=== PATIENT | female | born 1990 | race Caucasian/White ===

== ENCOUNTER 2018-04-02 22:33 | Emergency (ER) | payer SELFPAY ==
[~2018-04-02] VITALS: Ht 157.5 cm; Wt 93.4 kg
[~2018-04-02 22:33] MED LIST: ACHD5005 PO; AMOX250S5 PO; ANTI15DR4 EACH EAR; CETI-176 PO; CYCL10TA9 PO; CYCL5TAB11 PO; FERR27TA PO; FRS325T; HYDR118S PO; HYDR1TAB PO; TRM50T PO
--- OUTSIDE RECORDS SUMMARY | 2018-04-02 22:37 | XMS REPORT ---
Author Author BARON GUPTA [facility] eClinicalWorks Address Unknown Phone Unavailable Care Team Providers Care Paving Foreman Name Role Phone BARON GUPTA CP Unavailable Allergies, Adverse Reactions, Alerts Substance Reaction Event Type outer casing of gel caps hives/swelling Non Drug Allergy Problems Problem Type Condition Code Onset Dates Condition Status Assessment Electrocution and nonfatal effects of electric current, sequela T75.4XXS Active Problem Headache 784.0 Active Medications Medication Code System Code Instructions Start Date End Date Status Dosage Loratadine NDC [address]-40 10 mg January 14, 2014 take 1 tablet by Oral route 1 time per day take at hs Multivit-Iron NDC 0 orally daily 1 tab Procedures Procedure Coding System Code Date Office Visit, Est Pt., Level 2 CPT-4 35901 Aug 26, 2016 Vital Signs Date/Time: Aug 26, 2016 Cardiac Monitoring Heart Rate 78 bpm Weight 202 lbs Height 62 in BMI 36.94 Index Blood Pressure Diastolic 72 mmHg Blood Pressure Systolic 130 mmHg Results No Known Results Summary Purpose eClinicalWorks Submission
--- OUTSIDE RECORDS SUMMARY | 2018-04-02 22:37 | XMS REPORT ---
Author Author DIONNA DELGADO eClinicalWorks Address Unknown Phone Unavailable Care Team Providers Care Laborer Cheesemaking Name Role Phone DIONNA DELGADO CP Unavailable Allergies, Adverse Reactions, Alerts Substance Reaction Event Type outer casing of gel caps hives/swelling Non Drug Allergy Problems Problem Type Condition Code Onset Dates Condition Status Assessment Dental examination Z01.20 Active Problem Headache 784.0 Active Medications Medication Code System Code Instructions Start Date End Date Status Dosage Multivit-Iron NDC 0 orally daily 1 tab Loratadine NDC [address]-14 10 mg January 14, 2014 take 1 tablet by Oral route 1 time per day take at hs Procedures Procedure Coding System Code Date INTRAORL-PERIAPICAL 1 FILM 75992 CPT-4 D0220 Aug 31, 2016 INTRAORL-PERIAPICAL EA ADD FILM CPT-4 D0230 Aug 31, 2016 LTD ORAL EVALUATION - PROBLEM FOCUS CPT-4 D0140 Aug 31, 2016 INTRAORL-PERIAPICAL EA ADD FILM CPT-4 D0230 Aug 31, 2016 Vital Signs Date/Time: Aug 31, 2016 Blood Pressure Diastolic 85 mmHg Blood Pressure Systolic 123 mmHg Results No Known Results Summary Purpose eClinicalWorks Submission
--- OUTSIDE RECORDS SUMMARY | 2018-04-02 22:37 | XMS REPORT ---
Author Author DIONNA DELGADO [facility] Address Unknown Care Team Providers Care Field Marketing Coordinator Name Role Phone DANNY DIONNA Unavailable PROBLEMS Type Condition ICD9-CM Code [id number] Code Onset Dates Condition Status SNOMED Code Problem Headache 784.0 Active 57994186 Assessment Dental examination Z01.20 Sep, Active [id number] ALLERGIES Substance Reaction Event Type Date Status outer casing of gel caps hives/swelling Non Drug Allergy Sep, Active SOCIAL HISTORY No smoking Hx information available PLAN OF CARE VITAL SIGNS MEDICATIONS Medication Instructions Dosage Frequency Start Date End Date Duration Status Multivit-Iron orally daily 1 tab 24h Active Loratadine 10 mg take 1 tablet by Oral route 1 time per day take at hs 10 Jan, 2014 Active RESULTS No Results PROCEDURES Procedure Date Ordered Related Diagnosis Body Site LTD ORAL EVALUATION - PROBLEM FOCUS Sep 15, 2016 INTRAORL-PERIAPICAL 1 FILM 80415 Sep 15, 2016 IMMUNIZATIONS No Known Immunizations
--- OUTSIDE RECORDS SUMMARY | 2018-04-02 22:37 | XMS REPORT ---
Author Author HOLLI PLATT [facility] eClinicalWorks Address Unknown Phone Unavailable Care Team Providers Care Thread Checker Name Role Phone HOLLI PLATT CP Unavailable Allergies No Known Allergies Problems Problem Type Condition ICD-9 Code Onset Dates Condition Status Assessment Dental examination V72.2 Active Problem Headache 784.0 Active Medications No Known Medications Procedures Procedure Coding System Code Date AMALGAM-ONE SURFACE PRIMARY/PERM CPT-4 D2140 Jul 15, 2015 AMALGAM-ONE SURFACE PRIMARY/PERM CPT-4 D2140 Jul 15, 2015 Results No Known Results Summary Purpose eClinicalWorks Submission
[2018-04-02] MEDS ORDERED: LACTATED RINGERS 1,000 ML IV ONE ×2 (22:39→23:47)
[2018-04-02] MEDS ORDERED: ONDANSETRON 4 MG/2 ML (SDV) Z0FRAN IVP ONE (22:45)
[2018-04-02] MEDS ORDERED: diphenhydrAMINE 50 MG/ML INJ (BENADRYL) IVP ONE (22:45)
--- NOTE | 2018-04-02 22:46 | ED GI ---
General Chief Complaint: Abdominal/GI Problems Stated Complaint: N/V/D HANDS TINGLING Source of Information: Patient History of Present Illness Date Seen by Provider: April 02, 2018 Time Seen by Provider: 22:36 Initial Comments PT ARRIVES VIA [facility] FROM HOME STATES 20 MINUTES AGO, WHILE DOING LAUNDRY, SHE BEGAN HAVING NAUSEA, VOMITING, DIARRHEA AND GOT REAL SHAKEY AND TINGLING ALL OVER VOMITED "4 TIMES ALL AT ONCE" AND HAD DIARRHEA "3 TIMES ALL AT ONCE" NO FEVER HAS BEEN SWIMMING IN [place]IP [place] TODAY OCCASIONALLY DRINKS ALCOHOL, DRANK YESTERDAY BUT NOT TODAY LMP 2 DAYS AGO, NORMAL. NO CONTROL NO KNOWN SICK CONTACTS OR SUSPICIOUS FOODS Allergies and Home Medications Allergies Uncoded Allergies: OUTER CASE OF ADVIL LIQUID (Allergy, Unknown, 04/03/18) Home Medications Cyclobenzaprine HCl 10 Mg Tablet, 10 MG PO Q8H PRN for SPASMS Prescribed by: BENJAMIN DEWITT on 08/15/161732 Ferrous Sulfate 27 Mg Tablet, 27 MG PO DAILY, (Reported) Hydrocodone Bit/Acetaminophen 1 Each Tablet, 1 EACH PO Q4H PRN for PAIN Prescribed by: BENJAMIN DEWITT on 08/15/161732 Nitrofurantoin Monohyd/M-Cryst 100 Mg Capsule, 100 MG PO BID Prescribed by: MEG LUNA on 04/03/1852 Ondansetron 4 Mg Tab.rapdis, 4 MG PO Q4H Prescribed by: MEG LUNA on 04/03/1851 Phenazopyridine HCl 200 Mg Tablet, 1 TAB PO TID Prescribed by: MEG LUNA on 04/03/1852 Patient Home Medication List Home Medication List Reviewed: Yes Review of Systems Constitutional: see HPI, other (WEAK, SHAKEY, TINGLY ALL OVER) EENTM: No Symptoms Reported Respiratory: No Symptoms Reported Cardiovascular: No Symptoms Reported Gastrointestinal: See HPI; Denies Abdominal Pain; Diarrhea, Nausea, Vomiting Genitourinary: No Symptoms Reported Musculoskeletal: no symptoms reported Skin: no symptoms reported Psychiatric/Neurological: Anxiety, Tingling (ALL OVER) Endocrine: No Symptoms Reported Hematologic/Lymphatic: No Symptoms Reported Past Uknkemv-Yvyabt-Llhbky Hx Patient Social History Alcohol Use: Occasionally Uses Recreational Drug Use: No Smoking Status: Never a Smoker Recent Hopitalizations: No Immunizations Up To Date Tetanus Booster (TDap): More than 5yrs Past Medical History Surgeries: Yes Adenoidectomy, Tonsillectomy Respiratory: No Cardiac: No Neurological: No : No Reproductive Disorders: No Sexually Transmitted Disease: No Genitourinary: No Gastrointestinal: No Musculoskeletal: No Endocrine: No HEENT: Yes Tonsilitis Psychosocial: No Integumentary: No Blood Disorders: No Family Medical History No Pertinent Family Hx Physical Exam Vital Signs Vital Signs - First Documented 04/02/18 22:35 Pulse 104 Resp 23 B/P (MAP) 101/87 (92) Pulse Ox 100 O2 Delivery Room Air Capillary Refill : General Appearance: WD/WN, no apparent distress, other (VERY DRAMATIC, TALKS AND MOVES SLOWLY, SHIVERING AND LOWER LIP CHATTERING/QUIVERING) Neck: normal inspection Respiratory: normal breath sounds, no respiratory distress, no accessory muscle use Cardiovascular: regular rate, rhythm, no murmur Gastrointestinal: soft Extremities: normal inspection, no pedal edema, no calf tenderness, normal capillary refill Back: normal inspection 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, no motor/sensory deficits, alert, oriented x 3 Skin: normal color, warm/dry Progress/Results/Core Measures Results/Orders Lab Results Laboratory Tests Test 04/02/18 23:05 04/02/18 23:26 Range/Units White Blood Count 15.9 H 4.3-11.0 10^3/uL Red Blood Count 4.74 4.35-5.85 10^6/uL Hemoglobin 10.8 L 11.5-16.0 G/DL Hematocrit 34 L 35-52 % Mean Corpuscular Volume 72 L 80-99 FL Mean Corpuscular Hemoglobin 23 L 25-34 PG Mean Corpuscular Hemoglobin Concent 32 32-36 G/DL Red Cell Distribution Width 17.8 H 10.0-14.5 % Platelet Count 659 H 130-400 10^3/uL Mean Platelet Volume 9.5 7.4-10.4 FL Neutrophils (%) (Auto) 81 H 42-75 % Lymphocytes (%) (Auto) 15 12-44 % Monocytes (%) (Auto) 3 0-12 % Eosinophils (%) (Auto) 0 0-10 % Basophils (%) (Auto) 0 0-10 % Neutrophils # (Auto) 12.9 H 1.8-7.8 X 10^3 Lymphocytes # (Auto) 2.4 1.0-4.0 X 10^3 Monocytes # (Auto) 0.5 0.0-1.0 X 10^3 Eosinophils # (Auto) 0.0 0.0-0.3 10^3/uL Basophils # (Auto) 0.0 0.0-0.1 10^3/uL Neutrophils % (Manual) 75 % Lymphocytes % (Manual) 21 % Monocytes % (Manual) 2 % Eosinophils % (Manual) 0 % Basophils % (Manual) 0 % Band Neutrophils 2 % Blood Morphology Comment NORMAL Sodium Level 140 135-145 MMOL/L Potassium Level 4.2 3.6-5.0 MMOL/L Chloride Level 105 98-107 MMOL/L Carbon Dioxide Level 20 L 21-32 MMOL/L Anion Gap 15 H 5-14 MMOL/L Blood Urea Nitrogen 20 H 7-18 MG/DL Creatinine 0.85 0.60-1.30 MG/DL Estimat Glomerular Filtration Rate > 60 BUN/Creatinine Ratio 24 Glucose Level 159 H 70-105 MG/DL Calcium Level 9.2 8.5-10.1 MG/DL Magnesium Level 1.9 1.8-2.4 MG/DL Total Bilirubin 0.1 0.1-1.0 MG/DL Aspartate Amino Transf (AST/SGOT) 11 5-34 U/L Alanine Aminotransferase (ALT/SGPT) 20 0-55 U/L Alkaline Phosphatase 27 L 40-136 U/L Total Protein 6.8 6.4-8.2 GM/DL Albumin 3.8 3.2-4.5 GM/DL Amylase Level 44 25-125 U/L Lipase 14 8-78 U/L TSH Enders Testing 1.46 0.35-4.94 UIU/ML Serum Test, Qualitative NEGATIVE NEGATIVE Acetaminophen Level < 10 L 10-30 UG/ML Serum Alcohol < 10 <10 MG/DL Urine Color YELLOW Urine Clarity SLIGHTLY CLOUDY Urine pH 5 5-9 Urine Specific [place] 1.025 H 1.016-1.022 Urine Protein 3+ H NEGATIVE Urine Glucose (UA) 1+ H NEGATIVE Urine Ketones NEGATIVE NEGATIVE Urine Nitrite NEGATIVE NEGATIVE Urine Bilirubin NEGATIVE NEGATIVE Urine Urobilinogen NORMAL NORMAL MG/DL Urine Leukocyte Esterase 2+ H NEGATIVE Urine RBC (Auto) 2+ H NEGATIVE Urine RBC 10-25 H /HPF Urine WBC 5-10 H /HPF Urine Squamous Epithelial Cells 0-2 /HPF Urine Crystals NONE /LPF Urine Bacteria LARGE H /HPF Urine Casts PRESENT /LPF Urine Hyaline Casts 5-10 H /LPF Urine Mucus MODERATE H /LPF Urine Culture Indicated YES Urine Opiates Screen NEGATIVE NEGATIVE Urine Oxycodone Screen NEGATIVE NEGATIVE Urine Methadone Screen NEGATIVE NEGATIVE Urine Propoxyphene Screen NEGATIVE NEGATIVE Urine Barbiturates Screen NEGATIVE NEGATIVE Ur Tricyclic Antidepressants Screen NEGATIVE NEGATIVE Urine Phencyclidine Screen NEGATIVE NEGATIVE Urine Amphetamines Screen NEGATIVE NEGATIVE Urine Methamphetamines Screen NEGATIVE NEGATIVE Urine Benzodiazepines Screen NEGATIVE NEGATIVE Urine Cocaine Screen NEGATIVE NEGATIVE Urine Cannabinoids Screen NEGATIVE NEGATIVE Micro Results Microbiology 04/02/18 Urine Culture - Final, Complete My Orders Orders - MEG LUNA DO Saline Lock/Iv-Start (04/02/18 22:39) Ekg Tracing (04/02/18 22:39) Monitor-Rhythm Ecg Trace Only (04/02/18 22:39) Acetaminophen (04/02/18 22:39) Alcohol (04/02/18 22:39) Amylase (04/02/18 22:39) Cbc With Automated Diff (04/02/18 22:39) Comprehensive Metabolic Panel (04/02/18 22:39) Drug Screen Stat (Urine) (04/02/18 22:39) Hcg,Qualitative Serum (04/02/18 22:39) Lipase (04/02/18 22:39) Magnesium (04/02/18 22:39) Thyroid Analyzer (04/02/18 22:39) Ua Culture If Indicated (04/02/18 22:39) Ondansetron Injection (Zofran Injectio (04/02/18 22:45) Saline Lock/Iv-Start (04/02/18 22:39) Lactated Ringers (Lr 1000 Ml Iv Solution (04/02/18 22:39) Diphenhydramine Injection (Benadryl Inje (04/02/18 22:45) Manual Differential (04/02/18 23:05) Urine Culture (04/02/18 23:26) Saline Lock/Iv-Start (04/02/18 23:47) Lactated Ringers (Lr 1000 Ml Iv Solution (04/02/18 23:47) Ceftriaxone Injection (Rocephin Injectio (04/03/18 00:00) Ceftriaxone Injection (Rocephin Injectio (04/03/18 00:14) Ns (Ivpb) (Sodium Chloride 0.9% Ivpb Bag (04/03/18 00:15) Iv Push Core Measures Abstractor Ed (04/02/18 ) Medications Given in ED Vital Signs/I&O 04/02/18 04/03/18 22:35 01:28 Pulse 104 104 Resp 23 23 B/P (MAP) 101/87 (92) 101/87 (92) Pulse Ox 100 100 O2 Delivery Room Air Progress Progress Note : Progress Note NO VOMITING OR DIARRHEA DURING ER STAY WHEN PT URINATED ON ARRIVAL IN ER, PT NOW C/O LOWER ABDOMINAL PAIN WHEN SHE VOIDED FEELS BETTER AT DISMISSAL PT TOLERATING LIQUIDS PRIOR TO DISMISSAL Initial ECG Impression Date: April 02, 2018 Initial ECG Impression Time: 22:43 Initial ECG Rate: 99 Initial ECG Rhythm: Normal Sinus Departure Impression Primary Impression: Urinary tract infection Additional Impression: EPISODE OF NAUSEA/VOMITING/DIARRHEA Disposition: HOME, SELF-CARE Condition: Improved Departure-Patient Inst. Referrals: [facility] (PCP/Family) Primary Care Physician Patient Instructions: Nausea and Vomiting, Adult (DC), Urinary Tract Infection , Adult (DC) Add. Discharge Instructions: CLEAR LIQUIDS--WATER, BROTH, JELLO, GATORADE--DRINK ENOUGH SO YOU ARE URINATING EVERY 2 HOURS WHILE AWAKE TYLENOL AND MOTRIN NEEDED FOR PAIN OR FEVER FOLLOW UP WITH YOUR DR IN 2-3 DAYS IF NO BETTER All discharge instructions reviewed with patient and/or family. Voiced understanding. Scripts Phenazopyridine HCl (Pyridium) 200 Mg Tablet 1 TAB PO TID for BLADDER DISCOMFORT, #15 TAB Prov: MEG LUNA DO 04/03/18 Nitrofurantoin Monohyd/M-Cryst (Macrobid 100 mg Capsule) 100 Mg Capsule 100 MG PO BID, #20 CAP Prov: KERI LUNAA K DO 04/03/18 Ondansetron (Zofran Odt) 4 Mg Tab.rapdis 4 MG PO Q4H for Nausea/Vomiting, #10 TAB Prov: MEG LUNA K DO 04/03/18 MEG LUNA DO April 02, 2018 22:46
[2018-04-02 23:14] LABS: BASOPHILS % (AUTO) 0 % (0-10); EOSINOPHILS % (AUTO) 0 % (0-10); HEMATOCRIT 34 % (35-52); HEMOGLOBIN 10.8 G/DL (11.5-16.0); LYMPHOCYTES # (AUTO) 2.4 X 10^3 (1.0-4.0); LYMPHOCYTES % (AUTO) 15 % (12-44); MEAN CORPUSCULAR HEMOGLOBIN 23 PG (25-34); MEAN CORPUSCULAR HGB CONC 32 G/DL (32-36); MEAN CORPUSCULAR VOLUME 72 FL (80-99); MEAN PLATELET VOLUME 9.5 FL (7.4-10.4); MONOCYTES # (AUTO) 0.5 X 10^3 (0.0-1.0); MONOCYTES % (AUTO) 3 % (0-12); NEUTROPHILS # (AUTO) 12.9 X 10^3 (1.8-7.8); NEUTROPHILS % (AUTO) 81 % (42-75); PLATELET COUNT 659 10^3/uL (130-400); RED BLOOD COUNT 4.74 10^6/uL (4.35-5.85); RED CELL DISTRIBUTION WIDTH 17.8 % (10.0-14.5); WHITE BLOOD COUNT 15.9 10^3/uL (4.3-11.0)
[2018-04-02 23:29] LABS: BAND NEUTROPHILS 2 %; BASOPHILS % (MANUAL) 0 %; EOSINOPHILS % (MANUAL) 0 %; LYMPHOCYTES % (MANUAL) 21 %; MONOCYTES % (MANUAL) 2 %; NEUTROPHILS % (MANUAL) 75 %; RBC MORPH NORMAL
[2018-04-02 23:33] LABS: BILIRUBIN,URINE NEGATIVE (NEGATIVE); CLARITY,URINE SLIGHTLY CLOUDY; COLOR,URINE YELLOW; GLUCOSE, URINE (UA) 1+ (NEGATIVE); KETONES,URINE NEGATIVE (NEGATIVE); LEUKOCYTE ESTERASE ,URINE 2+ (NEGATIVE); NITRITE,URINE NEGATIVE (NEGATIVE); PH,URINE 5 (5-9); PROTEIN,URINE 3+ (NEGATIVE); UROBILINOGEN,URINE NORMAL (NORMAL)
[2018-04-02 23:33] LABS: ALANINE AMINOTRANSFERASE 20 U/L (0-55); ALBUMIN 3.8 GM/DL (3.2-4.5); ALKALINE PHOSPHATASE 27 U/L (40-136); AMYLASE 44 U/L (25-125); BILIRUBIN,TOTAL 0.1 MG/DL (0.1-1.0); BUN/CREATININE RATIO 24; CALCIUM 9.2 MG/DL (8.5-10.1); CARBON DIOXIDE 20 MMOL/L (21-32); CHLORIDE 105 MMOL/L (98-107); CREATININE SERUM 0.85 MG/DL (0.60-1.30); GFR ESTIMATED > 60; GLUCOSE 159 MG/DL (70-105); LIPASE 14 U/L (8-78); MAGNESIUM 1.9 MG/DL (1.8-2.4); POTASSIUM 4.2 MMOL/L (3.6-5.0); SODIUM 140 MMOL/L (135-145); TOTAL PROTEIN 6.8 GM/DL (6.4-8.2)
[2018-04-02 23:43] LABS: BACTERIA,URINE LARGE /HPF; SQUAMOUS EPITHELIAL CELL,UR 0-2 /HPF
[2018-04-02 23:48] LABS: AMPHETAMINE SCREEN, URINE NEGATIVE (NEGATIVE); BARBITURATE SCREEN URINE NEGATIVE (NEGATIVE); BENZODIAZEPINES SCREEN URINE NEGATIVE (NEGATIVE); CANNABINOID SCREEN, URINE NEGATIVE (NEGATIVE); COCAINE SCREEN URINE NEGATIVE (NEGATIVE); METHADONE STAT NEGATIVE (NEGATIVE); METHAMPHETAMINE SCREEN URINE S NEGATIVE (NEGATIVE); OPIATE SCREEN URINE NEGATIVE (NEGATIVE); OXYCODONE STAT NEGATIVE (NEGATIVE); PROPOXYPHENE STAT NEGATIVE (NEGATIVE); TRICYCLIC ANTIDEPRESSANTS SCRE NEGATIVE (NEGATIVE)
[2018-04-02 23:52] LABS: TSH (THYROID ANALYZER) 1.46 UIU/ML (0.35-4.94)
[2018-04-03] MEDS ORDERED: cefTRIAXone INJECTION 1,000 MG in NS (IVPB) 50 ML IV ONE ×2
[2018-04-03] MEDS ORDERED: cefTRIAXone 1 GM (ROCEPHIN) VIAL ONE (00:14)
[2018-04-03] MEDS ORDERED: NS (IVPB) 50 ML ONE (00:15)
[2018-04-03 00:29] LABS: ACETAMINOPHEN < 10 UG/ML (10-30)
[2018-04-03] MEDS ORDERED: ONDA4TAB8 PO (00:52)
[2018-04-03] MEDS ORDERED: NITR-65 PO (00:53)
[2018-04-03] MEDS ORDERED: PHEN-640 PO (00:53)
[2018-04-03 01:28] VITALS: BP 101/87
== END 2018-04-03 01:28 | disposition home or self-care (01) ==
LOC: EDUNIT# 22:33 → ER 22:34
DX: N39.0 Urinary tract infection, site not specified (principal); R11.2 Nausea with vomiting, unspecified; R19.7 Diarrhea, unspecified; Z90.89 Acquired absence of other organs; Z88.8 Allergy status to other drugs, medicaments and biological substances
CPT/HCPCS: 36415; 80053; 80306; 80320; 80329; 81000; 82150; 83690; 83735; 84443; 84703; 85007; 85027; 87077; 87088; 87186; 93005; 93041; 96361; 96374; 96375

== ENCOUNTER 2019-01-25 18:13 | Emergency (ER) | payer SELFPAY ==
[~2019-01-25] VITALS: Ht 157.5 cm; Wt 90.7 kg
[~2019-01-25 18:13] MED LIST changes: +NITR-65 PO; +ONDA4TAB8 PO; +PHEN-640 PO
[2019-01-25 19:25] LABS: BILIRUBIN,URINE NEGATIVE (NEGATIVE); CLARITY,URINE CLEAR; COLOR,URINE YELLOW; GLUCOSE, URINE (UA) NEGATIVE (NEGATIVE); KETONES,URINE NEGATIVE (NEGATIVE); LEUKOCYTE ESTERASE ,URINE 1+ (NEGATIVE); NITRITE,URINE NEGATIVE (NEGATIVE); PH,URINE 5 (5-9); PROTEIN,URINE NEGATIVE (NEGATIVE); UROBILINOGEN,URINE NORMAL (NORMAL)
[2019-01-25 20:07] LABS: BACTERIA,URINE FEW /HPF
[2019-01-25 20:29] LABS: BASOPHILS % (AUTO) 0 % (0-10); EOSINOPHILS # (AUTO) 0.1 10^3/uL (0.0-0.3); EOSINOPHILS % (AUTO) 2 % (0-10); HEMATOCRIT 35 % (35-52); HEMOGLOBIN 11.1 G/DL (11.5-16.0); LYMPHOCYTES # (AUTO) 2.5 X 10^3 (1.0-4.0); LYMPHOCYTES % (AUTO) 34 % (12-44); MEAN CORPUSCULAR HEMOGLOBIN 25 PG (25-34); MEAN CORPUSCULAR HGB CONC 32 G/DL (32-36); MEAN CORPUSCULAR VOLUME 78 FL (80-99); MEAN PLATELET VOLUME 9.6 FL (7.4-10.4); MONOCYTES # (AUTO) 0.5 X 10^3 (0.0-1.0); MONOCYTES % (AUTO) 6 % (0-12); NEUTROPHILS # (AUTO) 4.3 X 10^3 (1.8-7.8); NEUTROPHILS % (AUTO) 58 % (42-75); PLATELET COUNT 442 10^3/uL (130-400); RED CELL DISTRIBUTION WIDTH 16.6 % (10.0-14.5); WHITE BLOOD COUNT 7.4 10^3/uL (4.3-11.0)
[2019-01-25] MEDS ORDERED: LIDOCAINE 2% VISCOUS 15 ML UDC PO ONE (20:30)
[2019-01-25] MEDS ORDERED: ANTACID SUSP 30 ML UDC (MYLANTA) PO ONE (20:30)
[2019-01-25] MEDS ORDERED: FAMOTIDINE 20MG/2ML IV (PEPCID) IVP ONE (20:30)
[2019-01-25 20:43] LABS: ALANINE AMINOTRANSFERASE 19 U/L (0-55); ALBUMIN 4.3 GM/DL (3.2-4.5); ALKALINE PHOSPHATASE 27 U/L (40-136); BILIRUBIN,TOTAL 0.2 MG/DL (0.1-1.0); BUN/CREATININE RATIO 17; CARBON DIOXIDE 23 MMOL/L (21-32); CHLORIDE 104 MMOL/L (98-107); CREATININE SERUM 0.75 MG/DL (0.60-1.30); GFR ESTIMATED > 60; GLUCOSE 83 MG/DL (70-105); LIPASE 11 U/L (8-78); POTASSIUM 3.8 MMOL/L (3.6-5.0); SODIUM 139 MMOL/L (135-145); TOTAL PROTEIN 7.7 GM/DL (6.4-8.2)
[2019-01-25] MEDS ORDERED: OMEP20TA7 PO (21:58)
--- NOTE | 2019-01-25 21:59 | ED Abdominal Pain ---
General Chief Complaint: Abdominal/GI Problems Stated Complaint: L SIDE PAIN Nursing Triage Note: PT AMB TO TRIAGE WITH COMPLAINT OF LUQ SIDE PAIN. STATES STARTED TODAY WHILE AT WORK. STATES IT IS INTERMITTENT. STATES PAIN RADIAITES DOWN SIDE. Sepsis Screen: No Definite Risk Source of Information: Patient Exam Limitations: No Limitations History of Present Illness Date Seen by Provider: Jan 27, 2019 Time Seen by Provider: 19:10 Initial Comments This 28-year-old young lady presents to the emergency room with left flank pain starting around 15:00. Pain radiates to the left lower quadrant. She rates her pain as 3/10 now but it was 8/10 at its worst. She denies any constipation , diarrhea, nausea, vomiting, or fever. Last bowel movement was this morning and was normal. She recently had an upper respiratory infection. She reports urine is a little darker than usual but she has no dysuria or hematuria. LMP was sometime in December. She is not sexually active since her last period. She has increased pain with deep breathing. Allergies and Home Medications Allergies Uncoded Allergies: OUTER CASE OF ADVIL LIQUID (Allergy, Unknown, 04/03/18) Home Medications Cyclobenzaprine HCl 10 Mg Tablet, 10 MG PO Q8H PRN for SPASMS Prescribed by: BENJAMIN DEWITT on 08/15/16 173 Ferrous Sulfate 27 Mg Tablet, 27 MG PO DAILY, (Reported) Hydrocodone Bit/Acetaminophen 1 Each Tablet, 1 EACH PO Q4H PRN for PAIN Prescribed by: BENJAMIN DEWITT on 08/15/16 173 Nitrofurantoin Monohyd/M-Cryst 100 Mg Capsule, 100 MG PO BID Prescribed by: MEG ULNA on 04/03/1852 Omeprazole 20 Mg Tablet.dr, 20 MG PO DAILY Prescribed by: ANIKA CARBAJAL on 01/25/19 2158 Ondansetron 4 Mg Tab.rapdis, 4 MG PO Q4H Prescribed by: MEG LUNA on 04/03/1851 Phenazopyridine HCl 200 Mg Tablet, 1 TAB PO TID Prescribed by: MEG LUNA on 04/03/1852 Patient Home Medication List Home Medication List Reviewed: Yes Review of Systems Review of Systems Constitutional: no symptoms reported EENTM: See HPI Respiratory: See HPI Cardiovascular: No Symptoms Reported Gastrointestinal: See HPI Genitourinary: See HPI Musculoskeletal: no symptoms reported Skin: no symptoms reported Psychiatric/Neurological: No Symptoms Reported Endocrine: No Symptoms Reported Hematologic/Lymphatic: No Symptoms Reported Past Jsbclnq-Ecnzwj-Itokxc Hx Past Med/Social Hx: Reviewed and Corrections made Patient Social History Alcohol Use: Denies Use Recreational Drug Use: No Smoking Status: Never a Smoker Recent Foreign Travel: No Contact w/Someone Who Travel: No Recent Infectious Disease Expo: No Recent Hopitalizations: No Immunizations Up To Date Tetanus Booster (TDap): More than 5yrs PED Vaccines UTD: Yes Past Medical History Surgeries: Yes Adenoidectomy, Tonsillectomy Respiratory: No Cardiac: No Neurological: No Reproductive Disorders: No Sexually Transmitted Disease: No Genitourinary: No Gastrointestinal: No Musculoskeletal: No Endocrine: No HEENT: Yes Tonsilitis Psychosocial: No Integumentary: No Blood Disorders: Yes ("low iron") Family Medical History Reviewed Nursing Family Hx No Pertinent Family Hx Physical Exam Vital Signs Vital Signs - First Documented 01/25/19 18:37 Temp 98.0 Pulse 87 Resp 20 B/P (MAP) 127/83 (98) Pulse Ox 99 O2 Delivery Room Air Capillary Refill : Less Than 3 Seconds Height/Weight/BMI Height: 5'2.00" Weight: 200lbs. oz. 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, no motor/sensory deficits, alert, normal mood/affect, oriented x 3 Skin: normal color, warm/dry Progress/Results/Core Measures Results/Orders Lab Results Laboratory Tests Test 01/25/19 18:03 01/25/19 19:09 Range/Units Urine Color YELLOW Urine Clarity CLEAR Urine pH 5 5-9 Urine Specific [place] 1.020 1.016-1.022 Urine Protein NEGATIVE NEGATIVE Urine Glucose (UA) NEGATIVE NEGATIVE Urine Ketones NEGATIVE NEGATIVE Urine Nitrite NEGATIVE NEGATIVE Urine Bilirubin NEGATIVE NEGATIVE Urine Urobilinogen NORMAL NORMAL MG/DL Urine Leukocyte Esterase 1+ H NEGATIVE Urine RBC (Auto) 5+ H NEGATIVE Urine RBC 2-5 H /HPF Urine WBC 2-5 /HPF Urine Squamous Epithelial Cells 5-10 /HPF Urine Crystals NONE /LPF Urine Bacteria FEW H /HPF Urine Casts NONE /LPF Urine Mucus NEGATIVE /LPF Urine Culture Indicated NO White Blood Count 7.4 4.3-11.0 10^3/uL Red Blood Count 4.49 4.35-5.85 10^6/uL Hemoglobin 11.1 L 11.5-16.0 G/DL Hematocrit 35 35-52 % Mean Corpuscular Volume 78 L 80-99 FL Mean Corpuscular Hemoglobin 25 25-34 PG Mean Corpuscular Hemoglobin Concent 32 32-36 G/DL Red Cell Distribution Width 16.6 H 10.0-14.5 % Platelet Count 442 H 130-400 10^3/uL Mean Platelet Volume 9.6 7.4-10.4 FL Neutrophils (%) (Auto) 58 42-75 % Lymphocytes (%) (Auto) 34 12-44 % Monocytes (%) (Auto) 6 0-12 % Eosinophils (%) (Auto) 2 0-10 % Basophils (%) (Auto) 0 0-10 % Neutrophils # (Auto) 4.3 1.8-7.8 X 10^3 Lymphocytes # (Auto) 2.5 1.0-4.0 X 10^3 Monocytes # (Auto) 0.5 0.0-1.0 X 10^3 Eosinophils # (Auto) 0.1 0.0-0.3 10^3/uL Basophils # (Auto) 0.0 0.0-0.1 10^3/uL Sodium Level 139 135-145 MMOL/L Potassium Level 3.8 3.6-5.0 MMOL/L Chloride Level 104 98-107 MMOL/L Carbon Dioxide Level 23 21-32 MMOL/L Anion Gap 12 5-14 MMOL/L Blood Urea Nitrogen 13 7-18 MG/DL Creatinine 0.75 0.60-1.30 MG/DL Estimat Glomerular Filtration Rate > 60 BUN/Creatinine Ratio 17 Glucose Level 83 70-105 MG/DL Calcium Level 10.0 8.5-10.1 MG/DL Corrected Calcium 9.8 8.5-10.1 MG/DL Total Bilirubin 0.2 0.1-1.0 MG/DL Aspartate Amino Transf (AST/SGOT) 17 5-34 U/L Alanine Aminotransferase (ALT/SGPT) 19 0-55 U/L Alkaline Phosphatase 27 L 40-136 U/L Total Protein 7.7 6.4-8.2 GM/DL Albumin 4.3 3.2-4.5 GM/DL Lipase 11 8-78 U/L Serum Test, Qualitative NEGATIVE NEGATIVE My Orders Orders - ANIKA SOLITARIO MD Ua Culture If Indicated (01/25/19 19:13) Cbc With Automated Diff (01/25/19 20:21) Comprehensive Metabolic Panel (01/25/19 20:21) Hcg,Qualitative Serum (01/25/19 20:21) Lipase (01/25/19 20:21) Famotidine Injection (Pepcid Injection) (01/25/19 20:30) Lidocaine 2% Viscous 15 Ml (Xylocaine Vi (01/25/19 20:30) Antacid Suspension (Mylanta Suspension (01/25/19 20:30) Medications Given in ED Vital Signs/I&O 01/25/19 01/25/19 18:37 22:12 Temp 98.0 Pulse 87 75 Resp 20 16 B/P (MAP) 127/83 (98) 125/79 (94) Pulse Ox 99 98 O2 Delivery Room Air Blood Pressure Mean: 98 Progress Progress Note : Progress Note Trial of GI cocktail was administered. This did improve symptoms. Labs were unremarkable. Patient will trial omeprazole at home. Any further workup is deferred to the outpatient setting. Departure Impression Primary Impression: Left sided abdominal pain Disposition: 01 HOME, SELF-CARE Condition: Improved Departure-Patient Inst. Decision time for Depature: 21:54 Referrals: [facility] (PCP/Family) Primary Care Physician Patient Instructions: Acute Abdomen (Belly Pain), Adult (DC), Gastritis (DC) Add. Discharge Instructions: Drink plenty of noncarbonated clear liquids. Take omeprazole daily as prescribed for at least 2 weeks and then as needed. Follow-up with your primary care provider soon as possible. Avoid the following: Eating large meals, eating close to bedtime, caffeine, carbonation, chocolate, citrus fruits and juices, tomato products, alcohol, tobacco, mints, NSAID medications such as ibuprofen or naproxen, spicy foods, fatty or greasy foods, or anything else you know irritates your stomach. Return to care if you have worsening symptoms. All discharge instructions reviewed with patient and/or family. Voiced understanding. Scripts Omeprazole (Omeprazole) 20 Mg Tablet. 20 MG PO DAILY, #30 TAB Prov: ANIKA SOLITARIO MD 01/25/19 ANIKA SOLITARIO MD Jan 25, 2019 21:58
[2019-01-25 22:12] VITALS: BP 125/79
== END 2019-01-25 22:12 | disposition home or self-care (01) ==
LOC: ER 18:13 → EDUNIT# 18:13 → ER 22:12
DX: R10.12 Left upper quadrant pain (principal); Z88.8 Allergy status to other drugs, medicaments and biological substances; Z90.89 Acquired absence of other organs
CPT/HCPCS: 36415; 80053; 81000; 83690; 84703; 85025

== ENCOUNTER → 2021-09-22 | Outpatient (REF) ==
[~2021-09-22] MED LIST changes: +OMEP20TA7 PO
--- NOTE | 2021-09-22 16:21 | Diagnostic Imaging Report ---
INDICATION: Left forearm injury, pain, swelling. COMPARISON: None. FINDINGS: Two views of the left forearm demonstrate no fracture or dislocation. Articular surfaces are normal. No foreign body is seen. IMPRESSION: Negative left forearm. Dictated by: Dictated on workstation # [id number]
--- NOTE | 2021-09-22 16:24 | Diagnostic Imaging Report ---
INDICATION: Left hand injury, trauma, pain, swelling. COMPARISON: 08/15/2016. FINDINGS: Three views of the left hand demonstrate no fracture or dislocation. Articular surfaces are normal. No bony erosion is identified. There is no radiopaque foreign body. IMPRESSION: No fracture or dislocation. Dictated by: Dictated on workstation # [id number]
== END ==
LOC: OCC 16:00
PROVIDERS: ATTEND Family Medicine
DX: S69.92XA Unspecified injury of left wrist, hand and finger(s), initial encounter (principal); S59.912A Unspecified injury of left forearm, initial encounter; X58.XXXA Exposure to other specified factors, initial encounter
CPT/HCPCS: 73090; 73130

== ENCOUNTER 2021-10-13 08:57 | Outpatient (RCR) | payer OTHER ==
[~2021-10-13 08:57] MED LIST changes: +CYCL10TA25 PO; -CYCL10TA9 PO
== END 2021-10-13 16:20 | disposition home or self-care (01) ==
PROVIDERS: ATTEND Family Medicine
DX: S50.12XD Contusion of left forearm, subsequent encounter (principal); W23.0XXD Caught, crushed, jammed, or pinched between moving objects, subsequent encounter

== ENCOUNTER → 2022-06-16 | Outpatient (REF) ==
[~2022-06-16] MED LIST changes: +OMEP20TA56 PO; -OMEP20TA7 PO
--- NOTE | 2022-06-16 15:55 | Diagnostic Imaging Report ---
INDICATION: Left foot injury with pain. AP, oblique and lateral views of the left foot are obtained. FINDINGS: No acute fracture or dislocation is identified. No abnormal lytic or sclerotic focus is seen, and there is no radiopaque foreign body. IMPRESSION: No acute abnormality. Dictated by: Dictated on workstation # [id number]
== END | disposition home or self-care (01) ==
LOC: OCC 15:40
PROVIDERS: ATTEND Nurse Practitioner Family
DX: Z01.818 Encounter for other preprocedural examination (principal)
CPT/HCPCS: 73630